=== PATIENT | male | born 1955 | race Caucasian/White ===

== ENCOUNTER → 2016-08-23 | Outpatient (CLI) | payer MEDICARE ==
[~2016-08-23] MED LIST: ACIPHEX20 MG PO; ASPIRIN CHEWABL81 MG PO; CELEBREX200 MG PO; FISH OIL 1,0001 EAC1 PO; HYDROCHLOROTHIA25 MG PO; LIDODERM PATCH 51 EA TOP; NORCO 5-325 TA1 EACH PO; PAXIL20 MG PO; PROBIOTIC1 EAC1 PO; SKELAXIN TAB 8800 MG PO; ULTRAM50 MG PO; ZESTRIL10 MG PO
== END ==
LOC: KOH-I 14:30
DX: R10.32 Left lower quadrant pain (principal); N20.0 Calculus of kidney
CPT/HCPCS: 74176

== ENCOUNTER → 2020-06-29 | Outpatient (CLI) | payer MEDICARE, OTHER | LOC: KOH-I 06-21 16:15 | DX: M25.511 Pain in right shoulder (principal); G89.29 Other chronic pain; M75.101 Unspecified rotator cuff tear or rupture of right shoulder, not specified as traumatic; S46.811A Strain of other muscles, fascia and tendons at shoulder and upper arm level, right arm, initial encounter; X58.XXXA Exposure to other specified factors, initial encounter | CPT/HCPCS: 73221 ==